=== PATIENT | female | born 1970 | race African-American/Black ===

== ENCOUNTER 2020-10-12 19:14 | Emergency (ER) | payer OTHER ==
[~2020-10-12] VITALS: Ht 175.3 cm; Wt 125.0 kg
[2020-10-12 20:23] LABS: CLARITY URINE TURBID (CLEAR); COLOR URINE YELLOW (YELLOW); KETONES URINE 2+ (NEGATIVE); LEUKOCYTE ESTERASE URINE 2+ (NEGATIVE); NITRITE URINE POSITIVE (NEGATIVE); OCCULT BLOOD URINE 3+ (NEGATIVE); PH URINE 7.5 (4.5-8.0); PROTEIN URINE 3+ (NEGATIVE); SPECIFIC GRAVITY URINE 1.022 (1.005-1.030)
[2020-10-12 20:24] LABS: BASOPHILS % 0.3 % (0.0-2.0); EOSINOPHILS % 0.1 % (0.0-5.0); HEMATOCRIT. 36.9 % (36.0-48.0); HEMOGLOBIN. 11.9 g/dL (12.0-16.0); LYMPHOCYTES % 10.1 % (20.0-50.0); MEAN CORPUSCULAR HEMOGLOBIN 24.7 pg (28.0-32.0); MEAN CORPUSCULAR VOLUME 76.9 fL (81.0-99.0); MEAN PLATELET VOLUME 8.4 fl (7.4-10.4); MONOCYTES % 7.3 % (2.0-8.0); NEUTROPHILS % 82.2 % (40.0-76.0); PLATELET 252 x1000/uL (130-400); RED CELL DISTRIBUTION WIDTH 16.5 % (11.6-14.6)
[2020-10-12 20:28] LABS: CHLORIDE 105 mEq/L (98-107)
[2020-10-12] MEDS ORDERED: MORPHINE SULFATE 4 MG/ML CPJ (NOT FOR IM USE) IV ONE (21:00)
[2020-10-12] MEDS ORDERED: SODIUM CHLORIDE 0.9% 1,000 ML IV ONE (21:00)
[2020-10-12] MEDS ORDERED: ONDANSETRON HCL 4MG/2ML INJ IV ONE (21:00)
[2020-10-12] MEDS ORDERED: CEFTRIAXONE SODIUM 1 G/VIAL IV ONE (21:00)
[2020-10-12] MEDS ORDERED: IOHEXOL-300 100 ML BOTTLE ONE (23:50)
[2020-10-13 00:07] VITALS: BP 116/70
[2020-10-13] MEDS ORDERED: ONDA4TAB5 MT (00:08)
[2020-10-13] MEDS ORDERED: HYDR-4346 MT (00:08)
[2020-10-13] MEDS ORDERED: CEPH250C2 MT (00:08)
== END 2020-10-13 00:06 | disposition home or self-care (01) ==
LOC: ER 19:14
DX: N12 Tubulo-interstitial nephritis, not specified as acute or chronic (principal); I11.0 Hypertensive heart disease with heart failure; I50.9 Heart failure, unspecified; E11.9 Type 2 diabetes mellitus without complications; Z96.651 Presence of right artificial knee joint
CPT/HCPCS: 36415; 74177; 80053; 81003; 85025; 93005; 96365; 96366; 96375; 99285; J0696; J2270; J2405; J7030; Q9967

== ENCOUNTER 2022-02-13 15:24 | Inpatient (IN) | payer MEDICARE, MEDICAID ==
[~2022-02-13] VITALS: Ht 176.5 cm; Wt 125.7 kg
[~2022-02-13 15:24] MED LIST: CEPH250C2 MT; HYDR-4346 MT; ONDA4TAB5 MT
[2022-02-13] MEDS ORDERED: MORPHINE SULFATE 4 MG/ML CPJ (NOT FOR IM USE) IV STA (17:03)
[2022-02-13 17:38] LABS: BASOPHILS % 0.6 % (0.0-2.0); EOSINOPHILS % 0.5 % (0.0-5.0); HEMATOCRIT. 35.2 % (36.0-48.0); HEMOGLOBIN. 11.5 g/dL (12.0-16.0); LYMPHOCYTES % 18.5 % (20.0-50.0); MEAN CORPUSCULAR HEMOGLOBIN 24.6 pg (28.0-32.0); MEAN CORPUSCULAR VOLUME 75.4 fL (81.0-99.0); MEAN PLATELET VOLUME 8.2 fl (7.4-10.4); MONOCYTES % 10.6 % (2.0-8.0); NEUTROPHILS % 69.8 % (40.0-76.0); PLATELET 256 x1000/uL (130-400); RED BLOOD CELL COUNT 4.66 mill/uL (4.2-5.4); RED CELL DISTRIBUTION WIDTH 15.7 % (11.6-14.6)
[2022-02-13 17:38] LABS: CLARITY URINE TURBID (CLEAR); COLOR URINE YELLOW (YELLOW); KETONES URINE NEGATIVE (NEGATIVE); LEUKOCYTE ESTERASE URINE 3+ (NEGATIVE); NITRITE URINE NEGATIVE (NEGATIVE); OCCULT BLOOD URINE 3+ (NEGATIVE); PH URINE 5.5 (4.5-8.0); PROTEIN URINE 2+ (NEGATIVE); SPECIFIC GRAVITY URINE 1.012 (1.005-1.030); UROBILINOGEN URINE 0.2 E.U./dL (0.2-1.0)
[2022-02-13 17:49] LABS: CHLORIDE 105 mEq/L (98-107)
[2022-02-13] MEDS ORDERED: ONDANSETRON HCL 4MG/2ML INJ IV NR (18:15)
[2022-02-13] MEDS ORDERED: POTASSIUM CHLORIDE 20MEQ TABLET SR PO NR (18:15)
[2022-02-13] MEDS ORDERED: CEFTRIAXONE 1 G PREMIX 50 ML IV NR (18:15)
[2022-02-13] MEDS ORDERED: SODIUM CHLORIDE 0.9% 1000ML BAG (SEPSIS BOLUS) IV NR (18:15)
[2022-02-13] MEDS ORDERED: ASPIRIN 325MG EC TABLET PO NR (21:45)
[2022-02-13] MEDS ORDERED: ACETAMINOPHEN 325MG TABLET PO NR (21:45)
[2022-02-13 23:00] VITALS: BP 126/82
[2022-02-13 23:30] VITALS: BP 126/82
[2022-02-14] VITALS (7 sets, daily range): BP systolic 100–121; BP diastolic 56–87
[2022-02-14] MEDS ORDERED: CEFTRIAXONE 1 G PREMIX 50 ML IV SCH
[2022-02-14] MEDS ORDERED: DEXTROSE 50% WATER 50ML SYRINGE IV PRN
[2022-02-14] MEDS: HYDROCODONE/ACETAMINOPHEN 5/325MG TABLET PO PRN ×5 (00:14→21:32)
[2022-02-14] MEDS ORDERED: DULA0.75 SQ (03:55)
[2022-02-14] MEDS ORDERED: AMLO10TA80 PO (03:55)
[2022-02-14] MEDS ORDERED: METO25TA6 PO (03:55)
[2022-02-14 06:09] LABS: CHLORIDE 106 mEq/L (98-107)
[2022-02-14 06:21] LABS: HDL CHOLESTEROL 28 mg/dL (40-59); LDL CHOLESTEROL 75 mg/dL (5-100)
[2022-02-14] MEDS: BLOOD SUGAR DIAGNOSTIC STRIP TEST SCH ×2 (06:22→11:30)
[2022-02-14 06:37] LABS: HEMATOCRIT. 31.9 % (36.0-48.0); HEMOGLOBIN. 10.2 g/dL (12.0-16.0); MEAN CORPUSCULAR HEMOGLOBIN 24.7 pg (28.0-32.0); MEAN CORPUSCULAR VOLUME 76.9 fL (81.0-99.0); MEAN PLATELET VOLUME 8.5 fl (7.4-10.4); PLATELET 213 x1000/uL (130-400); RED BLOOD CELL COUNT 4.14 mill/uL (4.2-5.4); RED CELL DISTRIBUTION WIDTH 15.9 % (11.6-14.6)
[2022-02-14] MEDS: INSULIN LISPRO 100 UNITS/ML SUBCUT SCH ×2 (07:42→12:20)
[2022-02-14 08:38] LABS: PLATELET ESTIMATE NORMAL
[2022-02-14] MEDS: AMLODIPINE 10MG TABLET PO SCH (08:53)
[2022-02-14] MEDS: METOPROLOL TARTRATE 25MG TABLET PO SCH ×2 (08:54→20:51)
[2022-02-14] MEDS: ENOXAPARIN 30MG/0.3ML SYR SUBCUT SCH ×2 (08:54→21:31)
[2022-02-14] MEDS ORDERED: ENOXAPARIN 40MG/0.4ML SYR SUBCUT SCH (09:00)
[2022-02-14] MEDS: DOCUSATE SODIUM 250MG CAPSULE PO SCH ×2 (14:37→18:41)
[2022-02-14] MEDS ORDERED: LACTULOSE 20G/30ML UDC PO PRN (14:45)
[2022-02-14] MEDS ORDERED: CEFTRIAXONE 1,000 MG in DEXTROSE 5% WATER 50 ML IV SCH (18:00)
[2022-02-14] MEDS ORDERED: NALOXONE HCL 0.4MG/ML VIAL IV PRN (19:30)
[2022-02-15] VITALS: BP 110/65
[2022-02-15 08:00] VITALS: BP 118/74
[2022-02-15] MEDS: METOPROLOL TARTRATE 25MG TABLET PO SCH (08:48)
[2022-02-15] MEDS: ENOXAPARIN 30MG/0.3ML SYR SUBCUT SCH (08:48)
[2022-02-15] MEDS: AMLODIPINE 10MG TABLET PO SCH (08:49)
[2022-02-15] MEDS: DOCUSATE SODIUM 250MG CAPSULE PO SCH (08:49)
[2022-02-15] MEDS: HYDROCODONE/ACETAMINOPHEN 5/325MG TABLET PO PRN (10:20)
[2022-02-15] MEDS ORDERED: LEVO500T90 MT (11:03)
[2022-02-15] MEDS ORDERED: ACET-2708 MT (11:41)
[2022-02-15 13:28] VITALS: BP 110/63
== END 2022-02-15 14:30 | disposition home or self-care (01) | DRG 872 ==
LOC: ER 15:24 → 6WST 21:42 → ENRESERV 22:21 → EDBEDREQ 22:37 → EDBEDREQTM 22:37
PROVIDERS: ADMIT Internal Medicine; ATTEND Internal Medicine
DX: A41.9 Sepsis, unspecified organism (principal); Z68.41 Body mass index [BMI] 40.0-44.9, adult; N12 Tubulo-interstitial nephritis, not specified as acute or chronic; D64.9 Anemia, unspecified; E66.01 Morbid (severe) obesity due to excess calories; E87.6 Hypokalemia; I11.0 Hypertensive heart disease with heart failure; I50.9 Heart failure, unspecified; E11.9 Type 2 diabetes mellitus without complications; Z96.659 Presence of unspecified artificial knee joint
CPT/HCPCS: 36415; 71045; 80048; 80053; 80061; 81003; 82962; 83036; 83605; 83880; 84484; 85025; 87077; 87186; 99291; J0696; J1650; J2270; J2405; J7060